=== PATIENT | female | born 1975 | race Caucasian/White ===

== ENCOUNTER 2018-11-04 07:33 | Emergency (ER) | payer BC ==
--- NOTE | 2018-11-04 08:26 | ER ---
Nurse's Notes [facility] Name: Kristin Richardson Age: 43 yrs Sex: Female : 1975 Arrival Date: 11/04/2018 Time: 07:35 Bed 17 Private MD: Yael Royal K Diagnosis: Acute sinusitis Presentation: 11/04 07:35 Presenting complaint: Patient states: cough, sinus congestion, fever since Saturday. Pt aa5 reports vomiting today. Reports headache. 07:35 Acuity: CLAYTON 4 aa5 07:35 Transition of care: patient was not received from another setting of care. Onset of aa5 symptoms was October 2018. 07:35 Method Of Arrival: Ambulatory aa5 07:35 Risk Assessment: Do you want to hurt yourself or someone else? Patient reports no aa5 desire to harm self or others. Care prior to arrival: None. 08:45 Initial Sepsis Screen: Does the patient meet any 2 criteria? No. Patient's initial bp sepsis screen is negative. Does the patient have a suspected source of infection? No. Patient's initial sepsis screen is negative. Triage Assessment: 08:43 General: Appears in no apparent distress. comfortable, Behavior is calm, cooperative, bp appropriate for age. GI: No deficits noted. 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 - Social history:: Smoking status: . - Ebola Screening: : Patient denies travel to an Ebola-affected area in the 21 days before illness onset. - Family history:: not pertinent. - Hospitalizations: : No recent hospitalization is reported. Screenin:37 Abuse screen: Denies threats or abuse. Nutritional screening: No deficits noted. tw2 Tuberculosis screening: No symptoms or risk factors identified. Fall Risk None identified. Assessment: 07:58 General: Appears in no apparent distress. comfortable, ill, Behavior is calm, bp cooperative, appropriate for age. Pain: Complains of pain in head. Neuro: Level of Consciousness is awake, alert, obeys commands, Oriented to person, place, time, situation, Appropriate for age. Cardiovascular: No deficits noted. Respiratory: Airway is patent Respiratory effort is even, unlabored, Respiratory pattern is regular, symmetrical. GI: Abdomen is non-distended, obese. : No signs and/or symptoms were reported regarding the genitourinary system. EENT: Reports nasal congestion nasal discharge that is watery. Derm: No deficits noted. Musculoskeletal: Circulation, motion, and sensation intact. Range of motion: intact in all extremities. Vital Signs: 07:36 BP 143 / 106; Pulse 105; Resp 18 S; Temp 98.7(O); Pulse Ox 97% on R/A; Weight 97.52 kg aa5 (R); Height 5 ft. 6 in. (167.64 cm) (R); Pain 8/10; 08:30 BP 142 / 104; Pulse 99; Resp 16; Pulse Ox 96% ; bp 07:36 Body Mass Index 34.70 (97.52 kg, 167.64 cm) aa5 ED Course: 07:35 Patient arrived in ED. rg4 07:35 Yael Royal MD is Private Physician. rg4 07:37 Edgard Schneider MD is Attending Physician. rn 07:37 Arm band placed on. tw2 07:37 Bed in low position. Call light in reach. Pulse ox on. NIBP on. tw2 07:38 Efrain Dumont, SONAM is Primary Nurse. bp 07:44 Triage completed. aa5 08:45 No provider procedures requiring assistance completed. Patient did not have IV access bp during this emergency room visit. Administered Medications: No medications were administered Outcome: 08:25 Discharge ordered by . rn 08:45 Discharged to home ambulatory, with family. bp 08:45 Condition: stable 08:45 Discharge instructions given to patient, Instructed on discharge instructions, follow up and referral plans. medication usage, Demonstrated understanding of instructions, follow-up care, medications, Prescriptions given X 1. 08:46 Patient left the ED. bp Signatures: Edgard Schneider MD MD rn Calderon, Audri, RN RN aa5 Jessica Juan RN RN tw2 Radha Phan rg4 Efrain Dumont RN RN bp Corrections: (The following items were deleted from the chart) 07:44 07:38 PSHx: oral sx; tw2 aa5
--- NOTE | 2018-11-04 08:26 | EDPHYS ---
Physician Documentation [facility] Name: Kristin Richardson Age: 43 yrs Sex: Female : 1975 Arrival Date: 11/04/2018 Time: 07:35 Bed 17 Private MD: Yael Royal K ED Physician Edgard Schneider HPI: 11/04 07:46 This 43 yrs old Female presents to ER via Ambulatory with complaints of rn Fever, Vomiting, Sinus Pain. 07:46 The patient reports fever, not measured (subjective). Onset: The symptoms/episode rn began/occurred 2 day(s) ago. Modifying factors: there are no obvious modifying factors. Associated signs and symptoms: Pertinent positives: cough, runny nose, sinus congestion, sinus drainage. Severity of symptoms: At their worst the symptoms were mild in the emergency department the symptoms are unchanged. The patient has not experienced similar symptoms in the past. The patient has not recently seen a physician. Reports just got back from [facility], + congestion/sinus pressure/cough, no sob, no abd pain. + emesis this morning. Reports doesn't get a period, states in menopause.. 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 - Social history:: Smoking status: . - Ebola Screening: : Patient denies travel to an Ebola-affected area in the 21 days before illness onset. - Family history:: not pertinent. - Hospitalizations: : No recent hospitalization is reported. ROS: 07:46 Constitutional: + fever Eyes: Negative for injury, pain, redness, and discharge, ENT: + rn sinus pressure and congestion Neck: Negative for injury, pain, and swelling, Cardiovascular: Negative for chest pain, palpitations, and edema, Respiratory: + cough, negative for shortness of breath Abdomen/GI: Negative for abdominal pain, diarrhea MS/Extremity: Negative for injury and deformity, Skin: Negative for injury, rash, and discoloration, Neuro: + headache and generalized weakness Exam: 07:46 Constitutional: This is a well developed, well nourished patient who is awake, alert, rn and in no acute distress. Head/Face: Normocephalic, atraumatic. Eyes: Pupils equal round and reactive to light, extra-ocular motions intact. Lids and lashes normal. Conjunctiva and sclera are non-icteric and not injected. Cornea within normal limits. Periorbital areas with no swelling, redness, or edema. ENT: mild pharyngeal erythema, no stridor, no exudate Neck: Trachea midline, no thyromegaly or masses palpated. + left cervical non-tender cervical LAD. Supple, full range of motion without nuchal rigidity, or vertebral point tenderness. No Meningismus. Respiratory: No increased work of breathing, no retractions or nasal flaring. Abdomen/GI: soft, non-tender Skin: Warm, dry, and no evidence of cellulitis. MS/ Extremity: Pulses equal, no cyanosis. Neurovascular intact. Full, normal range of motion. Equal circumference. Neuro: Awake and alert, GCS 15, Normal gait. Vital Signs: 07:36 BP 143 / 106; Pulse 105; Resp 18 S; Temp 98.7(O); Pulse Ox 97% on R/A; Weight 97.52 kg aa5 (R); Height 5 ft. 6 in. (167.64 cm) (R); Pain 8/10; 08:30 BP 142 / 104; Pulse 99; Resp 16; Pulse Ox 96% ; bp 07:36 Body Mass Index 34.70 (97.52 kg, 167.64 cm) aa5 MDM: 07:37 Patient medically screened. rn 08:24 Differential diagnosis: viral Infection, bacterial infection, URI, sinusitis. Data rn reviewed: vital signs, nurses notes, lab test result(s), and as a result, I will discharge patient. Counseling: I had a detailed discussion with the patient and/or guardian regarding: the historical points, exam findings, and any diagnostic results supporting the discharge/admit diagnosis, lab results, the need for outpatient follow up, to return to the emergency department if symptoms worsen or persist or if there are any questions or concerns that arise at home. Special discussion: I discussed with the patient/guardian in detail that at this point there is no indication for admission to the hospital. It is understood, however, that if the symptoms persist or worsen the patient needs to return immediately for re-evaluation. 11/04 07:42 Order name: Flu; Complete Time: 08:24 rn 11/04 07:42 Order name: Strep; Complete Time: 08:12 rn 11/04 08:05 Order name: Throat Culture EDMS Administered Medications: No medications were administered Disposition: 11/04/18 08:25 Discharged to Home. Impression: Acute sinusitis. - Condition is Stable. - Discharge Instructions: Sinusitis, Adult. - Prescriptions for Zithromax Z- Galdino 250 mg Oral Tablet - take 1 tablet by ORAL route as directed for 5 days Day 1 - take two (2) tablets one time. Day 2, 3, 4 , 5 take one (1) tablet once daily.; 6 tablet. - Medication Reconciliation Form, Thank You Letter, Antibiotic Education, Prescription Opioid Use, Work release form form. - Follow up: Private Physician; When: As needed; Reason: Recheck today's complaints, Re-evaluation by your physician. - Problem is new. - Symptoms have improved. Signatures: Dispatcher [employer] EDMS Edgard Schneider MD MD rn Calderon, Audri, RN RN aa5 Jessica Juan RN RN tw2 Efrain Dumont RN RN bp Corrections: (The following items were deleted from the chart) 07:44 07:38 PSHx: oral sx; tw2 aa5 08:46 08:25 11/04/2018 08:25 Discharged to Home. Impression: Acute sinusitis. Condition is bp Stable. Forms are Work release form, Medication Reconciliation Form, Thank You Letter, Antibiotic Education, Prescription Opioid Use. Follow up: Private Physician; When: As needed; Reason: Recheck today's complaints, Re-evaluation by your physician. Problem is new. Symptoms have improved. rn
== END 2018-11-04 08:46 | disposition home or self-care (01) ==
LOC: ER 07:33
DX: J01.90 Acute sinusitis, unspecified (principal); E03.9 Hypothyroidism, unspecified
CPT/HCPCS: 87070; 87081; 87804; 99283

== ENCOUNTER 2020-07-10 17:39 | Emergency (ER) | payer BC, OTHER ==
--- OUTSIDE RECORDS SUMMARY | 2020-07-10 17:41 | XMS REPORT | Summary of Care ---
:1975 Author Organization [facility] - Health Address [address] [place] [address] Care Team Providers Name Role Phone Nahed Sagastume Primary Care Provider Encounter Details Date Type Department Care Team Description 04/27/2020 Letter (Out) [facility] Vitryn Message s Doctor Unassigned, No [address] [facility] [place] [address] [facility] [phone] [place] [address] Allergies No Known Allergiesdocumented as of this encounter (statuses as of 04/27/2020) Medications Medication Sig Dispensed Refills Start Date End Date Status levothyroxine (SYNTHROID) TK 1 T PO QD 5 05/17/2016 Active 50 mcg tablet ARMOUR THYROID 60 mg tablet TK 1 T PO QD 5 6 Active documented as of this encounter (statuses as of 04/27/2020) Active Problems Not on filedocumented as of this encounter (statuses as of 04/27/2020) Social History Tobacco Use Types Packs/Day Years Used Date Never Smoker Smokeless Tobacco: Never Used Alcohol Use Drinks/Week oz/Week Comments No 0 Standard drinks or equivalent 0.0 Sex Assigned at Date Recorded Not on file documented as of this encounter Last Filed Vital Signs Not on filedocumented in this encounter Plan of Treatment Date Type Specialty Care Team Description 04/27/2020 Laboratory Only Family Medicine Trina Arias , MATT [address] [place] [address] [place] [id number] Lab, Adc Fam Pob I documented as of this encounter Results Not on filedocumented in this encounter Insurance Payer Benefit Plan Subscriber ID Effective Dates Phone Address Type / Group [facility] [id number] 2017-Michael [phone] [address] PPO/POS [place] - OUT OF t 7 [id number] [place] [address] documented as of this encounter
--- OUTSIDE RECORDS SUMMARY | 2020-07-10 17:41 | XMS REPORT | Continuity of Care Document ---
:1975 Author Organization [facility] t Address [address] [place] [address] Care Team Providers Name Role Phone Lab, Fam Pob I Attending Clinician Unavailable Doctor Unassigned, Name Attending Clinician Unavailable SATURDAY Attending Clinician Unavailable Problems Condition Condition Condition Status Onset Resolution Last Treating Co mments Source Name Details Category Date Date Treatment Clinician Date History of History of Problem Resolve Univers thyroid thyroid d ity of disorder disorder [place] [facility] Acute non Acute non Problem Active Uni vers intractabl intractabl it y of e e [place] tension-ty tension-ty Ph ysici pe pe ans headache headache Arthralgia Arthralgia Problem Active U nivers of left of left ity of tempor[place] dibular dibular Physici joint joint ans Chiari Chiari Problem Active Univers malformati malformati it y of on on [place] [facility] Head pain Head pain Problem Active Uni vers cephalgia cephalgia ity of [place] [facility] Parotid Parotid Problem Active Univers mass mass ity of [place] [facility] Allergies, Adverse Reactions, Alerts This patient has no known allergies or adverse reactions. Family History Family Member Diagnosis Comments Start Date Stop Date Source Grandmother Family history of Univer sity of diabetes mellitus [place] [facility] Grandmother Family history of Univer sity of cardiac disorder [place] [facility] Grandmother Family history of Univer sity of cerebrovascular [place] [facility] accident (CVA) Grandmother Family history of Univer sity of migraine headaches [place] [facility] Grandmother Family history of Univer sity of hypertension [place] [facility] Grandmother Family history of Univer sity of malignant neoplasm of [facility] breast Grandmother Family history of Univer sity of thyroid disease [place] [facility] Grandfather Family history of Univer sity of diabetes mellitus [place] [facility] Grandfather Family history of Univer sity of cardiac disorder [place] [facility] Grandfather Family history of Univer sity of cerebrovascular [place] [facility] accident (CVA) Grandfather Family history of Univer sity of migraine headaches [place] [facility] Grandfather Family history of Univer sity of hypertension [place] [facility] Grandfather Family history of Univer sity of malignant neoplasm of [facility] breast Grandfather Family history of Univer sity of thyroid disease [place] [facility] Mother Family history of Univers ity of migraine headaches [place] [facility] Mother Family history of Univers ity of hypertension [place] [facility] Mother Family history of Univers ity of malignant neoplasm of [facility] breast Mother Family history of Univers ity of thyroid disease [place] [facility] Father Family history of Univers ity of hypertension [place] [facility] Father Family history of Univers ity of malignant neoplasm of [facility] breast Father Family history of Univers ity of thyroid disease [place] [facility] Social History Smoking Status Start Date Stop Date Source Never smoker [facility] Medications Ordered Filled Start Stop Current Ordering Indication Dosage Frequency Signature Comments Components Source Medication Medication Date Date Medication? Clinician (SIG) Name Name Levothyroxi Levothyroxi Yes U nivers ne Sodium ne Sodium ity o f TABS TABS [place] [facility] Ibuprofen Ibuprofen Yes Unive rs TABS TABS ity of [place] [facility] Vital Signs Vital Name Observation Time Observation Value Comments Source BP Systolic 2019-07-27 127 mm[Hg] Location: [facility]; Vian :: Position: [place] [facility] Sitting BP Diastolic 2019-07-27 88 mm[Hg] Location: [facility]; [facility] : Position: [place] [facility] Height 2019-07-27 66 [in_us] of :00: [place] [facility] Weight 2019-07-27 230 [lb_av] of :: [place] [facility] Body Mass Index 2019-07-27 37.12 kg/m2 University o f Calculated 12:00:00 [place] [facility] Temperature 2019-07-27 98.4 [degF] University of :00: [place] [facility] Heart Rate 2019-07-27 79 /min [facility] 12:00:00 [place] [facility] Procedures Procedure Date / Time Performing Clinician Source Performed [facility] Planned Activity Planned Date Details Comments Source Future Appointment 2020-07-25 Zen BURNETTE [facility] 13:30:00 CARMEN, Physicians Encounters Start End Encounter Admission Attending Care Care Encounter Source Date/Time Date/Time Type Type Clinicians Facility Department ID 2020-04-27 2020-04-27 Laboratory Lab, [facility] [id number] 13:07:37 13:27:37 Only Fam Pob I Health [id number] [place] [id number] Professio [phone] [address]al [address] 2020-04-27 2020-04-27 Letter Doctor JOHNNY [id number] 00:00:00 00:00:00 (Out) Unassigned, RHODA [id number] [place] [facility] [phone] [id number] 2019-07-27 2019-07-27 Appointmen SATURDAYLANETTE Neurology - [id number] [id number] [facility] 12:00:00 12:00:00 t; YOMAIRA MORALES [place] [facility] [place]IMBER[place], M.D. [facility] MJaspreet Kinsman Physici ans Results This patient has no known results.
--- OUTSIDE RECORDS SUMMARY | 2020-07-10 17:41 | XMS REPORT | Summary of Care ---
:1975 [address] [facility] - [facility] Address [address] [place] [id number] Care Team Providers Name Role Phone Tanika Nahed Primary Care Provider Reason for Visit Reason Comments LAB covid testing- patient stat es she has no symptoms just been exposed to a positive in the household Encounter Details Date Type Department Care Team Description 04/27/2020 Laboratory Only [facility] Family JuanaLashaun larsen PA [address] [place] [address] [place] [address] Exposure to Medicine - [facility], [facility] Fam Pob I SARS-associated [address] [place] [address] coronaviru s ([address] Dx) [place] [address] Allergies No Known Allergiesdocumented as of this [...] Assigned at Date Recorded Not on file COVID-19 Exposure Response Date Recorded In the last month, have you been in contact with Yes 04/27/2020 1:25 PM CDT someone who was confirmed or suspected to have Coronavirus / COVID-19? documented as of this encounter Last Filed Vital Signs Not on filedocumented in this encounter Nursing Notes Lavonne Asencio MA - 04/27/2020 1:20 PM CDTMdipak Richardson is a 45 year old female here for COVID Screening with a Nasopharyngeal Swab All droplet and contact precautions taken with appropriate PPE worn while interacting with patient. ? Goggles ? N95 Mask ? Gloves ? Gown Patient educated on plan of care for visit, swabbing technique, risks and benefits of test and length of time to receive results. Verbal consent obtained to perform test. CDC Fact Sheet for Patients nCoV Diagnostic Panel dated 10/11/2019 and Factsheet What to Do if Sick with COVID 19 09/21/19 provided. Patient swabbed per appropriate nasopharyngeal technique, and patient tolerated well. Patient was discharged from the testing clinic in stable condition. Lavonne Hammonds MA 04/27/2020 1:25 PM Bilate nares swabbed during COVID19 nasopharyngeal swab. documented in this encounter Plan of Treatment Name Type Priority Associated Diagnoses Order S chedule COVID-19 (PCR MOLECULAR LAB Routine Exposure to Expe cted: 04/27/2020, TESTING) SARS-associated Expires: coronavirus Health Maintenance Due Date Last Done Comments Depression Screening 1986 DTaP,Tdap,and Td Vaccines (1 - 1993 Tdap) PAP SMEAR 1995 Breast Cancer Screening 2014 (MAMMOGRAM) INFLUENZA VACCINE (#1) 2020 Colorectal Cancer Screening 02/19/2024 PNEUMOCOCCAL 0-64 YEARS COMBINED Aged Out No longer eligible based on SERIES patient's age to complete this topic documented as of this encounter Results Not on filedocumented in this encounter Visit Diagnoses Diagnosis Exposure to SARS-associated coronavirus - Primary documented in this encounter Additional Health Concerns Infection Onset Date Last Indicated Resolved Time COVID-19 Rule Out 04/27/2020 04/27/2020 documented as of this encounter Insurance Payer Benefit Plan Subscriber ID Effective Dates Phone Address Type / Group [facility] [id number] 2017-Michael [phone] [address] PPO/POS [place] - OUT OF t 7 [id number] [place] [address] 1 documented as of this encounter
--- NOTE | 2020-07-10 20:30 | ER ---
Nurse's Notes [facility] Name: Kristin Richardson Age: 45 yrs Sex: Female : 1975 Arrival Date: 07/10/2020 Time: 17:40 Bed 15 Private MD: Yael Royal K Diagnosis: Bitten by dog;Abrasion of right hand-skin tear Presentation: 07/10 18:13 Chief complaint: Patient states: Dog bite on R hand > 1 hr RN INTERN. Bleeding controlled. ca1 Own dog, already at [facility] at this time. Chief complaint: [place] Horse Race Timer was at [facility] and took pictures of my hand. Coronavirus screen: Client denies travel out of the [place] in the last 14 days. At this time, the client does not indicate any symptoms associated with coronavirus-19. Ebola Screen: Patient negative for fever greater than or equal to 101.5 degrees Fahrenheit, and additional compatible Ebola Virus Disease symptoms Patient denies exposure to infectious person. Patient denies travel to an Ebola-affected area in the 21 days before illness onset. No symptoms or risks identified at this time. Initial Sepsis Screen: Does the patient meet any 2 criteria? No. Patient's initial sepsis screen is negative. Does the patient have a suspected source of infection? No. Patient's initial sepsis screen is negative. Risk Assessment: Do you want to hurt yourself or someone else? Patient reports no desire to harm self or others. Onset of symptoms was July 10, 2020. 18:13 Method Of Arrival: Ambulatory ca1 18:13 Acuity: [place] 4 ca1 Triage Assessment: 20:40 Bite description: bite sustained to right hand and dorsum of right hand by a dog, zb animal information: vaccination(s) is unknown. General: Appears in no apparent distress. 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 - Social history:: Smoking status: Patient denies any tobacco usage or history of. Screenin:20 Abuse screen: Denies threats or abuse. Denies injuries from another. Nutritional zb screening: No deficits noted. Tuberculosis screening: No symptoms or risk factors identified. Fall Risk None identified. Assessment: 20:30 General: Appears in no apparent distress. comfortable, Behavior is calm, cooperative, zb appropriate for age. Pain: Complains of pain in right hand Pain currently is 3 out of 10 on a pain scale. Neuro: Level of Consciousness is awake, alert, obeys commands, Oriented to person, place, time, situation. Cardiovascular: Capillary refill < 3 seconds Patient's skin is warm and dry. Respiratory: Airway is patent is compromised Respiratory effort is even, unlabored, Respiratory pattern is regular. GI: Abdomen is flat, non-distended. : No signs and/or symptoms were reported regarding the genitourinary system. EENT: No signs and/or symptoms were reported regarding the EENT system. Derm: Skin is intact, Skin is pink, warm \T\ dry. Wound noted dorsum of right hand and right hand. Musculoskeletal: Capillary refill < 3 seconds, in bilateral fingers. Range of motion: intact in all extremities. 20:37 Reassessment: right hand dressed. wound dressing C/D/I. d/c instruction given. patient zb verbalized understand. Vital Signs: 18:13 BP 136 / 88; Pulse 77; Resp 16 S; Temp 98(TE); Pulse Ox 100% on R/A; Weight 92.99 kg ca1 (R); Height 5 ft. 6 in. (167.64 cm) (R); Pain 3/10; 18:13 Body Mass Index 33.09 (92.99 kg, 167.64 cm) ca1 ED Course: 17:40 Patient arrived in ED. ag5 17:40 Sandra Sagastume MD is Private Physician. ag5 17:41 Yael Royal MD is Private Physician. ag5 18:15 Triage completed. ca1 18:16 Arm band placed on right wrist. ca1 20:07 Noman Katz NP is PHCP. pm1 20:07 Yoel Massey MD is Attending Physician. pm1 20:20 Patient has correct armband on for positive identification. Bed in low position. Call zb light in reach. 20:20 No provider procedures requiring assistance completed. Patient did not have IV access zb during this emergency room visit. 20:27 Patricia Cohen, RN is Primary Nurse. zb Administered Medications: 20:37 Drug: Augmentin 875 mg Route: PO; zb 20:38 Follow up: Response: No adverse reaction zb Outcome: 20:20 Discharged to home ambulatory, with family. zb 20:20 Condition: stable 20:20 Instructed on discharge instructions, follow up and referral plans. medication usage, Demonstrated understanding of instructions, follow-up care, medications, Prescriptions given X 2. 20:29 Discharge ordered by MD. pm1 20:37 Patient left the ED. zb Signatures: Noman Katz, [employer] TECHN[employer]Y LAB TEACHER pm1 Colette William RN RN ca1 Justo Pacheco ag5 Patricia Cohen RN RN zb Corrections: (The following items were deleted from the chart) 07/11 00:32 07/10 20:38 General: Appears in no apparent distress. comfortable, Behavior is calm, zb cooperative, appropriate for age, zb 07/11 00:32 12 20:38 Pain: Complains of pain in right hand Pain currently is 3 out of 10 on a zb pain scale. zb 07/11 00:32 07/10 20:38 Neuro: Level of Consciousness is awake, alert, obeys commands, Oriented to zb person, place, time, situation, zb 07/11 00:32 07/10 20:38 Cardiovascular: Capillary refill < 3 seconds Patient's skin is warm and zb dry. zb 07/11 00:32 07/10 20:38 Respiratory: Airway is patent is compromised Respiratory effort is even, zb unlabored, Respiratory pattern is regular, zb 07/11 00:32 07/10 20:38 GI: Abdomen is flat, non-distended, zb zb 07/11 00:32 12 20:38 : No signs and/or symptoms were reported regarding the genitourinary zb system. zb 07/11 00:32 07/10 20:38 EENT: No signs and/or symptoms were reported regarding the EENT system. zb zb 07/11 00:32 12 20:38 Derm: Skin is intact, Skin is pink, warm \T\ dry. Wound noted dorsum of right zb hand and right hand zb 07/11 00:07/10 20:38 Musculoskeletal: Capillary refill < 3 seconds, in bilateral fingers. Range zb of motion: intact in all extremities, zb 07/11 00:07/10 20:40 Reassessment: right hand dressed. wound dressing C/D/I. d/c instruction zb given. patient verbalized understand. zb
--- NOTE | 2020-07-10 20:30 | EDPHYS ---
Physician Documentation [facility] Name: Kristin Age: 45 yrs Sex: Female : 1975 Arrival Date: 07/10/2020 Time: 17:40 Bed 15 Private MD: Yael Royal K ED Physician Yoel Massey HPI: 07/10 20:12 This 45 yrs old Female presents to ER via Ambulatory with complaints of Dog pm1 Bite. 20:12 The patient was bitten on the dorsum of right hand, by a dog, removing his leash. pm1 Onset: The symptoms/episode began/occurred today. Animal information: The animal was reported to appear healthy. Animal's vaccinations are up to date. Animal control has been notified, Patient adopted from [employer] 8 months ago and returned there today after second incidence of biting. Secondary to the bite the patient reports a laceration, that is superficial, skin tear to dorsum of right hand. Associated signs and symptoms: Pertinent negatives: motor deficit, numbness distal to wound, suspected foreign body. Patient reports tetanus shot in 2017. 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 - Social history:: Smoking status: Patient denies any tobacco usage or history of. ROS: 20:16 Constitutional: Negative for fever, chills, and weight loss. pm1 20:16 Cardiovascular: Negative for chest pain, palpitations, and edema, Respiratory: Negative for shortness of breath, cough, wheezing, and pleuritic chest pain, Neuro: Negative for headache, weakness, numbness, tingling, and seizure. 20:16 MS/extremity: Positive for laceration, of the dorsum of right hand, skin tear, Negative for decreased range of motion, deformity. 20:16 Skin: Positive for laceration skin tear dorsum right hand. Exam: 20:16 Constitutional: This is a well developed, well nourished patient who is awake, alert, pm1 and in no acute distress. Head/Face: Normocephalic, atraumatic. 20:16 Cardiovascular: Exam negative for acute changes, Rate: normal, Rhythm: regular, Pulses: no pulse deficits are appreciated. 20:16 Respiratory: Exam negative for acute changes, respiratory distress, shortness of breath. 20:16 Musculoskeletal/extremity: Extremities: grossly normal except: noted in the dorsum of right hand: skin tear dorsum of right hand, There is no evidence of decreased ROM, deformity, ROM: intact in all extremities. 20:16 Skin: Appearance: normal except for affected area, as noted on Extremity exam. 20:16 Neuro: Orientation: is normal, Mentation: is normal, Motor: is normal, moves all fours. Vital Signs: 18:13 BP 136 / 88; Pulse 77; Resp 16 S; Temp 98(TE); Pulse Ox 100% on R/A; Weight 92.99 kg ca1 (R); Height 5 ft. 6 in. (167.64 cm) (R); Pain 3/10; 18:13 Body Mass Index 33.09 (92.99 kg, 167.64 cm) ca1 MDM: 20:07 Patient medically screened. pm1 20:18 Data reviewed: vital signs. Data interpreted: Pulse oximetry: on room air is 100 %. pm1 Interpretation: normal. 20:18 ED course: Patient refused pain medications. 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 I explained to her standard of care with dog bites is to rule out foreign body. 20:26 Counseling: I had a detailed discussion with the patient and/or guardian regarding: the pm1 historical points, exam findings, and any diagnostic results supporting the discharge/admit diagnosis, the need for outpatient follow up, to return to the emergency department if symptoms worsen or persist or if there are any questions or concerns that arise at home. 07/10 20:12 Order name: Wound Care; Complete Time: 20:27 pm1 Administered Medications: 20:37 Drug: Augmentin 875 mg Route: PO; zb 20:38 Follow up: Response: No adverse reaction zb Disposition: 07/11 02:50 Co-signature as Attending Physician, Yoel Massey MD. [facility] Disposition: 07/10/20 20:29 Discharged to Home. Impression: Bitten by dog, Abrasion of right hand - skin tear. - Condition is Stable. - Discharge Instructions: Animal Bite. - Prescriptions for Augmentin 875- 125 mg Oral Tablet - take 1 tablet by ORAL route every 12 hours for 10 days; 20 tablet. - Medication Reconciliation Form, Thank You Letter, Antibiotic Education, Prescription Opioid Use form. - Follow up: Emergency Department; When: As needed; Reason: Worsening of condition. Follow up: Private Physician; When: 2 - 3 days; Reason: Recheck today's complaints, Continuance of care, Re-evaluation by your physician. - Problem is new. - Symptoms have improved. Signatures: Dispatcher [employer] EDUT Noman Katz BROADCAST PRODUCER BROADCAST PRODUCER pm1 Colette William RN RN [facility] Yoel Massey MD MD [facility] Patricia Cohen RN RN zb Corrections: (The following items were deleted from the chart) 07/10 20:30 20:12 Hand Right 3 View+RAD.RAD.BRZ ordered. [facility] 20:37 20:29 07/10/2020 20:29 Discharged to Home. Impression: Bitten by dog; Abrasion of right zb hand - skin tear. Condition is Stable. Forms are Medication Reconciliation Form, Thank You Letter, Antibiotic Education, Prescription Opioid Use. Follow up: Emergency Department; When: As needed; Reason: Worsening of condition. Follow up: Private Physician; When: 2 - 3 days; Reason: Recheck today's complaints, Continuance of care, Re-evaluation by your physician. Problem is new. Symptoms have improved. pm1
[2020-07-10] MEDS ORDERED: AMOX/K CLAV 875 MG TAB ONE (20:45)
[2020-07-14 03:26] VITALS: BP 136/88; TEMP 98; O2SAT 100
== END 2020-07-10 20:37 | disposition home or self-care (01) ==
LOC: ER 17:39
DX: S60.571A Other superficial bite of hand of right hand, initial encounter (principal); W54.0XXA Bitten by dog, initial encounter; Y93.89 Activity, other specified; Y92.9 Unspecified place or not applicable; E03.9 Hypothyroidism, unspecified
CPT/HCPCS: 99283

== ENCOUNTER 2021-03-25 00:13 | Emergency (ER) | payer BC ==
--- OUTSIDE RECORDS SUMMARY | 2021-03-25 00:16 | XMS REPORT | Continuity of Care Document ---
:1975 Author Organization [facility] t Address [address] [place] [address] Care Team Providers Name Role Phone Lab, [...] Start Date Stop Date Source Never smoker [facility] Physicians Medications Ordered Filled Start Stop Current [...] Source BP Systolic 2019-07-27 127 mm[Hg] Location: [facility]; [facility] : Position: [place] [facility] Sitting BP Diastolic 2019-07-27 88 mm[Hg] Location: [facility]; [facility] Position: [place] [facility] Sitting Height 2019-07-27 66 [in_us] of :00: [place] [facility] Weight 2019-07-27 230 [lb_av] :: [place] [facility] Body Mass Index 2019-07-27 37.12 kg/m2 [facility] Calculated 12:00: [place] [facility] Temperature 2019-07-27 98.4 [degF] of :: [place] [facility] Heart Rate 2019-07-27 79 /min [facility] 12:00:00 [place] [facility] Procedures Procedure Date / Time Performing Clinician Source Performed History of Appendectomy [facility] [place] [facility] Encounters Start End Encounter Admission Attending Care Care Encounter Source Date/Time Date/Time Type Type Clinicians Facility Department ID 2020-04-27 2020-04-27 Laboratory Lab, [facility] [id number] 13:07:37 13:27:37 Only Fam Pob I [facility] [id number] [place] [id number] Professio [id number] nal [address] 2020-04-27 2020-04-27 Letter Doctor JOHNNY [id number] 00:00:00 00:00:00 (Out) Unassigned, RHODA [id number] Paul [facility] [id number] 2019-07-27 2019-07-27 Appointmen CARMEN, [facility] [id number] [facility] 12:00:00 12:00:00 t; YOMAIRA MORALES [place] [facility] [place], M.D. [facility] Physici ans Results This patient has no known results.
[2021-03-25 00:59] LABS: Urine Blood Negative (Negative); Urine Glucose Negative (Negative); Urine Protein Negative (Negative); Urine Specific Gravity 1.015 (1.005-1.030)
[2021-03-25 01:17] LABS: Basophils % 0.6 % (0-1.3); Hematocrit 38.9 % (36.0-45.0); MPV 8.3 fL (7.6-11.3); RBC Red Blood Cell Count 4.43 M/uL (3.86-4.86)
[2021-03-25 01:29] LABS: BUN Blood Urea Nitrogen 17 mg/dL (7-18); Bicarbonate 29 mmol/L (21-32); Glucose Level 115 mg/dL (74-106); Potassium 3.7 mmol/L (3.5-5.1); Sodium Level 142 mmol/L (136-145); Troponin (Emerg Dept Use Only) < 0.02 ng/mL (0.0-0.045); Urine Bacteria <20 /HPF (<20); Urine RBC NONE SEEN /HPF (NONE SEEN)
--- NOTE | 2021-03-25 01:45 | EDPHYS ---
Physician Documentation [facility] Name: Kristin Richardson Age: 46 yrs Sex: Female : 1975 Arrival Date: 03/25/2021 Time: 00:15 Bed 17 Private MD: ED Physician Edgard Schneider HPI: 03/25 01:17 This 46 yrs old Female presents to ER via Ambulatory with complaints of PANIC rn ATTACK, 02-90%, TONGUE FEELS SWOLLEN. 01:17 The patient presents with a history of heart racing. Context: The symptoms occur at rn rest. Onset: The symptoms/episode began/occurred just prior to arrival. Duration: The patient or guardian reports a single episode. Modifying factors: The symptoms are aggravated by nothing. The symptoms are alleviated by nothing. Associated signs and symptoms: Pertinent negatives: chest pain, fever, SOB, syncope. Severity of symptoms: At their worst the symptoms were moderate in the emergency department the symptoms have improved. The patient has experienced a previous episode. The patient has not recently seen a physician. And reports watching a movie at home, at rest, began to feel palpitations/lightheaded/tingling of the face. Has had a panic attack once before and this feels similar but has been a long time and patient states no reason to be anxious. Already markedly improving by the time she arrived here. Denies chest pain.. 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 - Social history:: Smoking status: Patient denies any tobacco usage or history of. - Family history:: not pertinent. - Hospitalizations: : No recent hospitalization is reported. ROS: 01:17 Constitutional: Negative for fever, chills, and weight loss, Eyes: Negative for injury, rn pain, redness, and discharge, Neck: Negative for injury, pain, and swelling, Cardiovascular: Negative for chest pain, and edema, Respiratory: Negative for shortness of breath, cough, wheezing, and pleuritic chest pain, Abdomen/GI: Negative for abdominal pain, nausea, vomiting, diarrhea, and constipation, Back: Negative for injury and pain, : Negative for injury, bleeding, discharge, and swelling, MS/Extremity: Negative for injury and deformity, Skin: Negative for injury, rash, and discoloration, Neuro: Negative for headache, weakness, and seizure. Exam: 00:46 ECG was reviewed by the Attending Physician. rn 01:17 Constitutional: This is a well developed, well nourished patient who is awake, alert, rn and in no acute distress. Head/Face: Normocephalic, atraumatic. Eyes: Pupils equal round and reactive to light, extra-ocular motions intact. Lids and lashes normal. Conjunctiva and sclera are non-icteric and not injected. Cornea within normal limits. Periorbital areas with no swelling, redness, or edema. ENT: No oral swelling, no stridor, dry mucous membranes Cardiovascular: Tachycardic, regular. No pulse deficits Respiratory: No increased work of breathing, no retractions or nasal flaring. Abdomen/GI: Soft, non-tender Skin: Warm, dry MS/ Extremity: Pulses equal, no cyanosis. Neuro: Awake and alert, GCS 15, oriented to person, place, time, and situation. Cranial nerves II-XII grossly intact. Motor strength 5/5 in all extremities. Sensory grossly intact. Cerebellar exam normal. Normal gait. Vital Signs: 00:21 BP 147 / 69; Pulse 118; Resp 26; Temp 97.9; Pulse Ox 100% on R/A; Weight 88.45 kg; em Height 5 ft. 6 in. (167.64 cm); Pain 0/10; 01:23 BP 110 / 78; Pulse 95; Resp 18; Pulse Ox 100% on R/A; sh9 00:21 Body Mass Index 31.47 (88.45 kg, 167.64 cm) em MDM: 00:23 Patient medically screened. rn 01:41 Differential diagnosis: arrythmia, dehydration, stress disorder, Hyperventilation. Data rn reviewed: vital signs, nurses notes, lab test result(s), EKG, and as a result, I will discharge patient. Data interpreted: supervisor fur dressing: rate is 95 beats/min, rhythm is normal sinus rhythm, regular, with no ectopy, Interpretation: normal rate, normal rhythm, Pulse oximetry: on room air is 100 %. Interpretation: normal. Test interpretation: by ED physician or midlevel provider: ECG. Counseling: I had a detailed discussion with the patient and/or guardian regarding: the historical points, exam findings, and any diagnostic results supporting the discharge/admit diagnosis, lab results, the need for outpatient follow up, to return to the emergency department if symptoms worsen or persist or if there are any questions or concerns that arise at home. Response to treatment: the patient's symptoms have resolved after treatment, the patient's condition has returned to base line, the patient is now symptom free, and as a result, I will discharge patient. Special discussion: I discussed with the patient/guardian in detail that at this point there is no indication for admission to the hospital. It is understood, however, that if the symptoms persist or worsen the patient needs to return immediately for re-evaluation. Based on the history and exam findings, there is no indication for further emergent testing or inpatient evaluation. I discussed with the patient/guardian the need to see the fence laborer for further evaluation of the symptoms. I discussed with the patient/guardian the need to see the primary care provider for further evaluation of the symptoms. ED course: Patient back to baseline, normal vitals, normal work-up here, normal ECG. Declines Valium. Will DC home with return precautions and PCP follow-up. If happens again recommend outpatient Holter monitor and cardiology follow-up.. 03/25 00:35 Order name: CBC with Diff; Complete Time: rn 03/25 00:35 Order name: Basic Metabolic Panel; Complete Time: rn 03/25 00:35 Order name: Urine Microscopic Only; Complete Time: rn 03/25 00:36 Order name: Troponin (emerg Dept Use Only); Complete Time: rn 03/25 00:59 Order name: Urine Dipstick-Ancillary; Complete Time: EDMN 03/25 00:35 Order name: IV Start; Complete Time: rn 03/25 00:35 Order name: Urine Dipstick-Ancillary (obtain specimen); Complete Time: rn 03/25 00:35 Order name: Urine Test (obtain specimen); Complete Time: : rn 03/25 00:35 Order name: EKG; Complete Time: rn 03/25 00:35 Order name: EKG - Nurse/Tech; Complete Time: 01:06 rn EC:46 Rate is 83 beats/min. Rhythm is regular. QRS Upson is Normal. OK interval is normal. QRS rn interval is normal. QT interval is normal. No Q waves. T waves are Normal. No ST changes noted. Clinical impression: Normal ECG. Interpreted by me. Reviewed by me. Administered Medications: No medications were administered Disposition Summary: 03/25/21 01:44 Discharge Ordered Location: Home rn Problem: new rn Symptoms: are resolved rn Condition: Stable rn Diagnosis - Hyperventilation rn - Palpitations rn Followup: rn - With: Private Physician - When: As needed - Reason: Recheck today's complaints, Re-evaluation by your physician Discharge Instructions: - Discharge Summary Sheet rn - Palpitations rn Forms: - Medication Reconciliation Form rn - Thank You Letter rn - Antibiotic bucket turner - Prescription Opioid Use rn Signatures: Dispatcher [employer] Adebayo Mcdonough RN RN Edgard Watson MD MD rn Hicks, Skylar, RN RN sh9 Corrections: (The following items were deleted from the chart) 00:24 00:22 PSHx: adrenal gland removed on left side; em em 01:24 00:22 PSHx: adrenal gland removed, unkown which side; em sh9
--- NOTE | 2021-03-25 01:45 | ER ---
Nurse's Notes [facility] Name: Kristin Richardson Age: 46 yrs Sex: Female : 1975 Arrival Date: 03/25/2021 Time: 00:15 Bed 17 Private MD: Diagnosis: Hyperventilation;Palpitations Presentation: 03/25 00:21 Chief complaint: Patient states: was sitting on the couch watching TV, then felt heart em racing and lips started tingling, denies pain. Coronavirus screen: Vaccine status: Patient reports being unvaccinated. Ebola Screen: Patient negative for fever greater than or equal to 101.5 degrees Fahrenheit, and additional compatible Ebola Virus Disease symptoms Patient denies exposure to infectious person. Patient denies travel to an Ebola-affected area in the 21 days before illness onset. No symptoms or risks identified at this time. Initial Sepsis Screen: Does the patient meet any 2 criteria? HR > 90 bpm. No. Patient's initial sepsis screen is negative. Does the patient have a suspected source of infection? No. Patient's initial sepsis screen is negative. Risk Assessment: Do you want to hurt yourself or someone else? Patient reports no desire to harm self or others. Onset of symptoms was March 25, 2021. 00:21 Method Of Arrival: Ambulatory em 00:21 Acuity: CLAYTON 3 em Triage Assessment: 00:21 General: Appears in no apparent distress. uncomfortable, well groomed, well developed, em well nourished, Behavior is cooperative, anxious. Pain: Denies pain. Neuro: Level of Consciousness is awake, alert, obeys commands, Oriented to person, place, time, situation. Cardiovascular: Denies chest pain, Capillary refill < 3 seconds Patient's skin is warm and dry. Respiratory: Reports shortness of breath Airway is patent Respiratory effort is even, unlabored, Respiratory pattern is regular, symmetrical. Derm: Skin is intact, is healthy with good turgor, Skin is pink, warm \T\ dry. Musculoskeletal: Capillary refill < 3 seconds, Range of motion: intact in all extremities. 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 - Social history:: Smoking status: Patient denies any tobacco usage or history of. - Family history:: not pertinent. - Hospitalizations: : No recent hospitalization is reported. Screenin:24 Abuse screen: Denies threats or abuse. Denies injuries from another. Nutritional sh9 screening: No deficits noted. Tuberculosis screening: No symptoms or risk factors identified. Fall Risk None identified. Assessment: 01:22 General: Appears uncomfortable, Behavior is anxious. Pain: Denies pain. Neuro: Reports sh9 difficulty swallowing dizziness. Cardiovascular: Reports palpitations, Denies chest pain, nausea, vomiting. Respiratory: No deficits noted. GI: No deficits noted. : No deficits noted. EENT: No deficits noted. Derm: No deficits noted. Musculoskeletal: No deficits noted. Vital Signs: 00:21 BP 147 / 69; Pulse 118; Resp 26; Temp 97.9; Pulse Ox 100% on R/A; Weight 88.45 kg; em Height 5 ft. 6 in. (167.64 cm); Pain 0/10; 01:23 BP 110 / 78; Pulse 95; Resp 18; Pulse Ox 100% on R/A; sh9 00:21 Body Mass Index 31.47 (88.45 kg, 167.64 cm) em ED Course: 00:15 Patient arrived in ED. 00:22 Triage completed. em 00:22 Arm band placed on. em 00:23 Edgard Schneider MD is Attending Physician. rn 00:25 Sharyn Rider RN is Primary Nurse. sh9 01:06 Troponin (emerg Dept Use Only) Sent. sh9 01:07 Urine Microscopic Only Sent. sh9 01:07 Basic Metabolic Panel Sent. sh9 01:07 CBC with Diff Sent. sh9 01:24 Patient has correct armband on for positive identification. sh9 01:24 No provider procedures requiring assistance completed. sh9 Administered Medications: No medications were administered Outcome: 01:44 Discharge ordered by . rn 01:53 Patient left the ED. sh9 Signatures: Adebayo Chew RN RN Edgard Schneider MD MD rn Marsh, Wendy Sharyn Rider RN RN sh9 Corrections: (The following items were deleted from the chart) 00:24 00:22 PSHx: adrenal gland removed on left side; em em 00: PSHx: adrenal gland removed, unkown which side; [facility]
[2021-03-25 02:16] VITALS: TEMP 97.9; O2SAT 100
[2021-03-25 02:18] VITALS: BP 110/78
== END 2021-03-25 01:53 | disposition home or self-care (01) ==
LOC: ER 00:13
DX: R06.4 Hyperventilation (principal); E03.9 Hypothyroidism, unspecified
CPT/HCPCS: 36415; 80048; 81003; 81015; 84484; 85025; 93005; 99282

== ENCOUNTER → 2023-08-19 | Emergency (ER) | payer BC ==
[2023-08-19 06:24] LABS: Absolute Lymphocytes (CBC) 1.4 K/uL (0.7-4.9); Hematocrit 39.9 % (36.0-45.0); Lymphocytes % 24.1 % (15.3-44.8); MCV 86.7 fL (80-100); MPV 7.6 fL (7.6-11.3); Platelets 241 thou/uL (152-406)
[2023-08-19 06:45] LABS: Potassium 3.5 mEq/L (3.5-5.1)
--- NOTE | 2023-08-19 06:53 | ER ---
Nurse's Notes [facility] Name: Kristin Richardson Age: 48 yrs Sex: Female : 1975 Arrival Date: 08/19/2023 Time: 05:47 Bed 14 Private MD: Delfin Allen Diagnosis: Paresthesia of skin;Dry mouth, unspecified;Other visual disturbances Presentation: 08/19 00:57 Chief complaint: Patient states: generalized body cold sensation,onset 1 week with pf1 bilateral cold hands with tingling sensation, mouth dry with metal taste to tongue, with blurred vision,onset yesterday. Patient denies any chest pain nausea or SOB. 00:57 Coronavirus screen: Vaccine status: Patient reports being unvaccinated. Client denies pf1 travel out of the [place] in the last 14 days. At this time, the client does not indicate any symptoms associated with coronavirus-19. Ebola Screen: Patient negative for fever greater than or equal to 101.5 degrees Fahrenheit, and additional compatible Ebola Virus Disease symptoms. Initial Sepsis Screen: Does the patient meet any 2 criteria? No. Patient's initial sepsis screen is negative. Does the patient have a suspected source of infection? No. Patient's initial sepsis screen is negative. Risk Assessment: Do you want to hurt yourself or someone else? Patient reports no desire to harm self or others. 00:57 Method Of Arrival: Ambulatory pf1 00:57 Acuity: CLAYTON 3 pf1 Historical: - Allergies: 06:13 No Known Allergies; pf1 - PMHx: 06:13 Hypothyroidism; Hypertensive disorder; pf1 - PSHx: 06:13 adrenal gland removed; pf1 - Immunization history:: Adult Immunizations up to date, Client reports having NOT received the Covid vaccine. Last tetanus immunization: < 10 years ago Flu vaccine is not up to date. - Social history:: Smoking status: Patient denies any tobacco usage or history of. Patient/guardian denies using alcohol, street drugs. Screenin:14 [facility] ED Fall Risk Assessment (Adult) History of falling in the last 3 months, pf1 including since admission No falls in past 3 months (0 pts) Confusion or Disorientation No (0 pts) Intoxicated or Sedated No (0 pts) Impaired Gait No (0 pts) Mobility Assist Device Used No (0 pt) Altered Elimination No (0 pt) Score/Fall Risk Level 0 - 2 = Low Risk Oriented to surroundings, Maintained a safe environment, Educated pt \T\ family on fall prevention, incl call for assistance when getting out of bed, Assessed \T\ reinforced patient's understanding of fall precautions, Provided non-skid footwear, Hourly rounding (assess needs \T\ fall precautionary measures) done, Used ambulatory aids as needed (educated on \T\ assisted with), Used gait belt as appropriate. Abuse screen: Denies threats or abuse. Nutritional screening: No deficits noted. Tuberculosis screening: No symptoms or risk factors identified. Assessment: 06:14 General: Appears in no apparent distress. comfortable, well groomed, well developed, pf1 Behavior is calm, cooperative, appropriate for age, quiet. Pain: Denies pain. Neuro: Reports blurred vision paresthesias in right hand and left hand. Cardiovascular: No deficits noted. Capillary refill < 3 seconds Patient's skin is warm and dry. Respiratory: No deficits noted. Airway is patent Respiratory effort is even, unlabored, Respiratory pattern is regular, symmetrical. GI: No deficits noted. No signs and/or symptoms were reported involving the gastrointestinal system. : No deficits noted. No signs and/or symptoms were reported regarding the genitourinary system. EENT: Reports blurred vision in eyes with dry mouth and metal taste to tongue. Derm: No deficits noted. No signs and/or symptoms reported regarding the dermatologic system. Musculoskeletal: Reports tingling sensation to bilateral hands with cold sensation. 06:16 Reassessment: Patient stated was switched from Levothyroxine to Tirosint 112mcg, that pf1 she started taking 10 days ago. 06:50 Reassessment: Patient appears in no apparent distress at this time. No changes from tm6 previously documented assessment. Vital Signs: 00:57 BP 155 / 104; Pulse 79; Resp 18; Temp 97.2; Pulse Ox 97% on R/A; Weight 89.81 kg; pf1 Height 5 ft. 6 in. ; Pain 0/10; 06:50 BP 127 / 91; Pulse 66; Pulse Ox 95% on R/A; Pain 0/10; tm6 00:57 Body Mass Index 31.96 (89.81 kg, 167.64 cm) pf1 00:57 Pain Scale: Adult pf1 06:50 Pain Scale: Adult tm6 ED Course: 05:55 Patient arrived in ED. gm2 05:56 Delfni Allen MD is Private Physician. gm2 05:58 Narayan Moon DO is Attending Physician. ms3 05:59 Talita Jordan, RN is Primary Nurse. tm6 06:13 Triage completed. pf1 06:14 Patient has correct armband on for positive identification. Bed in low position. Call pf1 light in reach. 06:14 Arm band placed on right wrist. tm6 06:16 BMP Sent. tm6 06:16 CBC with Diff Sent. tm6 06:16 No provider procedures requiring assistance completed. Inserted saline lock: 22 gauge tm6 in right antecubital area, using aseptic technique. 06:51 Delfin Allen MD is Referral Physician. ms3 06:58 Provided Education on: follow up with PCP. tm6 06:58 IV discontinued, intact, bleeding controlled, No redness/swelling at site. Pressure tm6 dressing applied. Administered Medications: No medications were administered Medication: 06:17 VIS not applicable for this client. tm6 Outcome: 06:52 Discharge ordered by MD. ms3 06:58 Discharged to home ambulatory, with family, tm6 06:58 Condition: stable 06:58 Discharge instructions given to patient, family, Instructed on discharge instructions, follow up and referral plans. Demonstrated understanding of instructions, follow-up care, 06:59 Patient left the ED. tm6 Signatures: Narayan Moon DO DO ms3 Mena Mooney RN RN pf1 Kristen Osman gm2 Talita Jordan, RN RN tm6 Corrections: (The following items were deleted from the chart) 06:14 06:13 PSHx: adrenal gland removed; pf1 pf1
--- NOTE | 2023-08-19 06:53 | EDPHYS ---
Physician Documentation [facility] Name: Kristin Richardson Age: 48 yrs Sex: Female : 1975 Arrival Date: 08/19/2023 Time: 05:47 Bed 14 Private MD: Delfin Allen ED Physician Narayan Moon HPI: 08/19 06:53 This 48 yrs old Female presents to ER via Ambulatory with complaints of Numbness Of ms3 Hand, Blurred Vision, metal taste in mouth, dry mouth. 06:53 48-year-old female with past medical history of hypothyroidism, hypertension presents ms3 to the emergency department for cold hands, dry mouth, blurry vision that began yesterday. Patient denies shortness of breath, fevers, chills, nausea, vomiting. Patient denies alleviating or inciting factors. Patient denies pain. Historical: - Allergies: 06:13 No Known Allergies; pf1 - PMHx: 06:13 Hypothyroidism; Hypertensive disorder; pf1 - PSHx: 06:13 adrenal gland removed; pf1 - Immunization history:: Adult Immunizations up to date, Client reports having NOT received the Covid vaccine. Last tetanus immunization: < 10 years ago Flu vaccine is not up to date. - Social history:: Smoking status: Patient denies any tobacco usage or history of. Patient/guardian denies using alcohol, street drugs. ROS: 06:53 Constitutional: Negative for fever, and chills. ms3 06:53 Cardiovascular: Negative for chest pain, and palpitations. Respiratory: Negative for shortness of breath, cough, wheezing, and pleuritic chest pain, Abdomen/GI: Negative for abdominal pain, nausea, vomiting, diarrhea, and constipation, Skin: Negative for injury, rash, and discoloration, 06:53 ENT: Positive for Dry mouth, Exam: 06:53 Constitutional: This is a well developed, well nourished patient who is awake, alert, ms3 and in no acute distress. Head/Face: Normocephalic, atraumatic. Neck: Trachea midline, no cervical lymphadenopathy. Supple, full range of motion without nuchal rigidity, or vertebral point tenderness. No Meningismus. Chest/axilla: Normal chest wall appearance and motion. Nontender with no deformity. Cardiovascular: Regular rate and rhythm with a normal S1 and S2. No gallops, murmurs, or rubs. Normal PMI, no JVD. No pulse deficits. Respiratory: Lungs have equal breath sounds bilaterally, clear to auscultation and percussion. No rales, rhonchi or wheezes noted. No increased work of breathing, no retractions or nasal flaring. Abdomen/GI: Soft, non-tender, with normal bowel sounds. No distension or tympany. No guarding or rebound. No evidence of tenderness throughout. Skin: Warm, dry with normal turgor. Normal color with no rashes, no lesions, and no evidence of cellulitis. MS/ Extremity: Pulses equal, no cyanosis. Neurovascular intact. Full, normal range of motion. Neuro: Awake and alert, GCS 15, oriented to person, place, time, and situation. Cranial nerves II-XII grossly intact. Motor strength 5/5 in all extremities. Sensory grossly intact. Cerebellar exam normal. Normal gait. Vital Signs: 00:57 BP 155 / 104; Pulse 79; Resp 18; Temp 97.2; Pulse Ox 97% on R/A; Weight 89.81 kg; pf1 Height 5 ft. 6 in. ; Pain 0/10; 06:50 BP 127 / 91; Pulse 66; Pulse Ox 95% on R/A; Pain 0/10; tm6 00:57 Body Mass Index 31.96 (89.81 kg, 167.64 cm) pf1 00:57 Pain Scale: Adult pf1 06:50 Pain Scale: Adult tm6 MDM: 06:08 Patient medically screened. ms3 06:53 Differential diagnosis: Electrolyte abnormality vs medication reaction vs Sjogren's. ms3 Data reviewed: vital signs, nurses notes, lab test result(s), and as a result, I will discharge patient. Historians other than the Patient: Spouse/Significant Other: Patient's . Care significantly affected by the following chronic conditions: Hypertension. Counseling: I had a detailed discussion with the patient and/or guardian regarding the historical points, exam findings, and any diagnostic results supporting the discharge/admit diagnosis, lab results, the need for outpatient follow up, to return to the emergency department if symptoms worsen or persist or if there are any questions or concerns that arise at home. ED course: Discussed labs with patient and her . Patient follow-up with her respiratory therapy director in 2 to 3 days. Patient stands agrees to plan. All questions were answered. Return precautions discussed include worsening symptoms, or any other concerns. 08/19 06:07 Order name: CBC with Diff; Complete Time: 06:45 ms3 08/19 06:07 Order name: BMP; Complete Time: 06:45 ms3 Administered Medications: No medications were administered Disposition Summary: 08/19/23 06:52 Discharge Ordered Notes: Location: Home ms3 Condition: Stable ms3 Diagnosis - Paresthesia of skin ms3 - Dry mouth, unspecified ms3 - Other visual disturbances ms3 Followup: ms3 - With: Delfin Allen MD - When: 2 - 3 days - Reason: Recheck today's complaints Discharge Instructions: - Discharge Summary Sheet ms3 - Blurred Vision, Adult ms3 - Paresthesia ms3 Forms: - Medication Reconciliation Form ms3 - Thank You Letter ms3 - Antibiotic Education ms3 - Prescription Opioid Use ms3 - Patient Portal Instructions ms3 - Leadership Thank You Letter ms3 Signatures: Dispatcher [employer] EDNarayan Andrade DO DO ms3 Mena Mooney RN RN pf1 Corrections: (The following items were deleted from the chart) 06:14 06:13 PSHx: adrenal gland removed; pf1 pf1
[2023-08-19 07:22] VITALS: BP 127/91; O2SAT 95
== END ==
LOC: ER 05:47
DX: R20.2 Paresthesia of skin (principal); R68.2 Dry mouth, unspecified; H53.8 Other visual disturbances; I10 Essential (primary) hypertension; Z28.310 Unvaccinated for COVID-19
CPT/HCPCS: 36415; 80048; 85025; 99283